=== PATIENT | female | born 1945 | race Caucasian/White ===

== ENCOUNTER 2018-09-07 00:15 | Inpatient (IN) | payer OTHER, BC, MEDICARE ==
[2018-09-06 17:10] LABS: INR 0.98
--- NOTE | 2018-09-06 18:46 | RADIOLOGY IMAGING REPORT ---
[facility] PATIENT NAME: Candida Ralph : 1945 MR: [id number] V: [id number] EXAM DATE: ORDERING PHYSICIAN: RICHARD WHITEHEAD TECHNOLOGIST: Location: [facility] Patient: Candida Ralph : 1945 Visit/Account:[id number] Date of Sevice: 09/05/2018 Examination: Bilateral leg length HISTORY: Preoperative planning for arthroplasty. FINDINGS: Frontal views of the lower extremities are obtained. There is medial and lateral compartmen t osteoarthritis of both knees. There is bilateral genu valgus. Right leg length: The right lower extremity measures 79.7 cm with a femur length of 44.8 cm and a tibial length of 34.5 cm. Left leg length: The left lower extremity measures 79.6 cm with a femur length of 44.5 cm and a tibial length of 34.6 cm. IMPRESSION: 1. Leg lengths as above. Report Dictated By: Matteo Huddleston at 09/06/2018 6:36 PM Report E-Signed By: Matteo Huddleston at 09/06/2018 6:42 PM WSN:[id number]
[~2018-09-07] VITALS: Ht 157.5 cm; Wt 88.0 kg
[2018-09-07] VITALS (14 sets, daily range): BP systolic 103–153; BP diastolic 46–99
[~2018-09-07 00:15] MED LIST: BUPR-127 PO; BUPR300T56 PO; CEPH-13 PO; CETI-176 PO; DULO30CA35 PO; DULO60CA56 PO; LEVO75TA73 PO; LOR5/325 PO; LOSA-57 PO; PANT40TA63 PO; SIMV-54 PO; TIZA4CAP3 PO
[2018-09-07] MEDS ORDERED: fentaNYL CITR 100 MCG/2 ML AMP ONE (10:16)
[2018-09-07] MEDS ORDERED: DEXAMETHASONE SOD 4 MG/ML VIAL ONE (10:16)
[2018-09-07] MEDS ORDERED: LIDOCAINE MPF 1% 5 ML VIAL ONE (10:16)
[2018-09-07] MEDS ORDERED: ONDANSETRON 4 MG/2 ML VIAL ONE (10:16)
[2018-09-07] MEDS ORDERED: PROPOFOL EMUL(*) 10MG/ML 20 ML 20 ML ONE (10:16)
[2018-09-07] MEDS ORDERED: KETAMINE HCL 200 MG/20 ML MDV ONE (10:19)
[2018-09-07] MEDS ORDERED: MIDAZOLAM 2 MG/2 ML VIAL IVP PRN (11:05)
[2018-09-07] MEDS ORDERED: LIDOCAINE/SOD BICARB 8.4% SYR ID ONE (11:05)
[2018-09-07] MEDS ORDERED: FAMOTIDINE 20 MG TAB PO ONE (11:05)
[2018-09-07] MEDS ORDERED: NORMOSOL R SOLN(*) 1000 ML BAG 1,000 ML IV PRN (11:05)
[2018-09-07] MEDS ORDERED: cloNIDine EPIDUR INJ 100MCG/ML 40 MCG, ROPIVACAINE 0.5% 20 ML VIAL 25 ML, EPINEPHrine H... INJ ONE (11:05)
[2018-09-07] MEDS ORDERED: PREGABALIN 75 MG CAPSULE PO ONE (11:05)
[2018-09-07] MEDS ORDERED: ACETAMINOPHEN 500 MG TAB PO ONE (11:05)
[2018-09-07] MEDS ORDERED: CLINDAMYCIN 900 MG/D5W 50 ML 50 ML IVPB ONE (11:05)
[2018-09-07] MEDS ORDERED: TRANEXAMIC AC 1000 MG/10ML SDV 1,000 MG in DEXTROSE 5% 50 ML BAG 50 ML IV ONE (11:05)
[2018-09-07] MEDS ORDERED: VASOPRESSIN 20 UNIT/ML VIAL ONE (12:43)
[2018-09-07] MEDS ORDERED: LIDOCAINE 2% JELLY 5 ML TUBE ONE (13:08)
[2018-09-07] MEDS ORDERED: MORPHINE SULFATE 30 MG PCA IV PRN (14:50)
[2018-09-07] MEDS ORDERED: PROMETHAZINE 25 MG/ML 1 ML AMP IVP PRN (14:50)
[2018-09-07] MEDS ORDERED: MAGNESIUM CITRATE 300 ML BTL PO PRN (14:50)
[2018-09-07] MEDS ORDERED: NALOXONE HCL 0.4 MG/ML VIAL IVP PRN (14:50)
[2018-09-07] MEDS ORDERED: FLUSH 10 ML SYR IVP PRN (14:50)
[2018-09-07] MEDS ORDERED: ACETAMINOPHEN 500 MG TAB PO PRN (14:50)
[2018-09-07] MEDS ORDERED: KCL/D5LR 20 MEQ/1000 ML PREMIX 1,000 ML IV PRN (14:50)
[2018-09-07] MEDS ORDERED: ONDANSETRON 4 MG/2 ML VIAL IVP PRN (14:50)
--- NOTE | 2018-09-07 15:33 | OPERATIVE REPORT 1 ---
EVENT DATE: September 07, 2018 SURGEON: Thomas Euceda MD ANESTHESIOLOGIST: Ryder Zhao MD ANESTHESIA: General plus spinal. PRODUCTION STATISTICAL CLERK: Jono Glover PA-C PREOPERATIVE DIAGNOSIS Left knee degenerative joint disease (valgus knee). 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 PROCEDURE PERFORMED Left total knee arthroplasty (12815). ESTIMATED BLOOD LOSS Minimal. INTRAVENOUS FLUID Crystalloid 1900, no colloid. TOURNIQUET TIME 64 SPECIMENS No specimens. COMPLICATIONS No complications. IMPLANTS USED Language System[employer] Attune 6 narrow left femur, posterior stabilized, fixed-bearing 5 tibia, anatomic 35 patella, 6 mm #6 posterior stabilized insert, all cemented. SUMMARY OF PROCEDURE The patient was brought into the operating room and placed on the OR table in the supine position. She was then placed in a seated position for a spinal, after which she was placed back in the supine position for a light general anesthetic. Her left lower extremity was prepped and draped in the usual sterile fashion. We had templated her cuts. She actually measured about 4.5, but we chose to cut her at a 5. For the procedure after adequate prep and drape, her limb was exsanguinated, and then the tourniquet was inflated to 275 mmHg. A utilitarian anterior incision was made, deepened through skin and subcutaneous tissue, followed by a medial parapatellar approach. She had abundant osteophyte formation throughout much of the joint. There was virtually no notch remaining. We used rongeurs to reopen the notch so we could better assess where to place the fidel which, based on templating, would be placed slightly medial of midline. We also looked to remove the ACL, but there was little ACL remaining. The patellofemoral ligament was divided. We cleared the tissue off the anterior aspect of the distal femur. The menisci were excised. We did release a little bit of the medial material on the metaphysis, but we did very minimal dissection because it was a valgus knee. Ultimately, we were able to get the fidel into the proper position and then made our distal cut. The first time really did not hit enough of the distal condyle, so we dropped by 2 mm and cut again. This seemed to be more appropriate. We sized her for a 6. It looked like it would probably be a narrow. We made our distal cuts and then did the box cut. We trialed and then drilled the lug holes. It looked like the femur fit fine. We then moved to the tibia. Posterior retraction and lateral retraction were obtained with a single and two-prong retractor respectively. Additional meniscus was removed. We then made our tibial cut at approximately 2 mm below the deficient lateral plateau. After this cut, we sized for a 5 and then did our initial posterior condylar osteophyte resections and capsular stripping. We then trialed back with a 6 femur. It was a little bit tight in extension at first, but when I pushed on it, we got the capsular scar tissue to stretch out, and we got her to full extension fairly easily. We checked her tension with a 5 mm insert. She was a little bit tighter laterally than medially. We went back in and removed a little bit more osteophyte posteriorly, and a bit more capsular stripping balanced her a bit more, but ultimately I did decide to release the popliteus given that she had a valgus knee that seemed like the appropriate step, and this did balance things substantially better. We then removed the trial inserts. We drilled a little bit of bone at the eburnated section of the plateau laterally, placed bone blocks both distally and proximally to minimize cement excursion and allow for better cement mantle for the tibial insert. We then placed the final implants starting with the tibia, then the insert at 5 mm, followed by the femur, and then the patella. The patella had previously been prepared by measuring first. It measured 23, so we used a demar when we cut it, but then did a free-hand cut to drop 2 mm more, and that left us with a 13 mm bone. With all implants in place, we had removed excess cement and then waited for full polymerization, at which point the tourniquet was deflated, and the second dose of tranexamic acid was given. There was very minimal bleeding with the tourniquet down. We moved up to size 6 trial, and that seemed to fit quite nicely, so we removed the trial and placed the final insert after injecting the posterior capsule with a local anesthetic. We placed additional local anesthetic around the skin because she had already received a block, and therefore, we did not do it in the periosteum. The wound was irrigated again, and then we closed using #1 Vicryl suture, followed by 3-0 Vicryl suture, 4-0 Monocryl, and then a skin adhesive with mesh. She was then given a dry, sterile dressing, awakened, and transferred to the recovery area in stable condition. MARIA TERESA
--- NOTE | 2018-09-07 15:57 | RADIOLOGY IMAGING REPORT ---
FACILITY: [facility] [place] PATIENT NAME: Candida Ralph : 1945 MR: [id number] V: [id number] EXAM DATE: ORDERING PHYSICIAN: RICHARD WHITEHEAD TECHNOLOGIST: Location: [facility] [place] Patient: Candida Ralph : 1945 Visit/Account:[id number] Date of Sevice: 09/07/2018 Left knee, two views. HISTORY: Left total knee arthroplasty. COMPARISON: 09/06/2018. The articular surfaces of the distal femur, proximal tibia, and patella have been resected and replac ed with prosthetic components. The components have been secured with cement. Alignment is unremarkabl e. Air collections are present in the anterior soft tissues. IMPRESSION: Unremarkable knee replacement. Report Dictated By: René Shelby MD at 09/07/2018 3:51 PM Report E-Signed By: René Shelby MD at 09/07/2018 3:52 PM WSN:[email or web address]
[2018-09-07] MEDS ORDERED: PANTOPRAZOLE SOD 40 MG TABEC PO PRN (16:25)
--- NOTE | 2018-09-07 16:31 | Hospitalist Consultation ---
History of Present Illness Requesting Physician Dr. Euceda Reason for Consult Medical Management Chief Complaint s/p left knee replacement History of Present Illness She was admitted s/p left knee replacement. It is reported the surgery went well and without complication. History Problems: (1) Hypertension Status: Chronic (2) Hyperlipidemia Status: Chronic (3) Hypothyroidism Status: Chronic (4) GERD (gastroesophageal reflux disease) Status: Chronic (5) Depression Status: Chronic Home Meds Reported Medications Tizanidine Hcl (TIZANIDINE HCL) 4 Mg Capsule, 0.5 TAB PO QHS, CAPSULE 09/05/18 Bupropion Hcl (BUPROPION XL) 300 Mg Tab.er.24h, 300 MG PO QDAY, TAB 09/05/18 Duloxetine Hcl (CYMBALTA) 60 Mg Capsule.dr, 60 MG PO QDAY, #5 CAP 09/05/18 Simvastatin (SIMVASTATIN) 40 Mg Tablet, 40 MG PO HS, TAB 09/01/18 Losartan/Hydrochlorothiazide (LOSARTAN-HCTZ 100-12.5 MG TAB) 1 Each Tablet, 1 EACH PO QDAY 09/01/18 Cetirizine Hcl (ZYRTEC) 10 Mg Tablet, 10 MG PO QDAY, TAB 08/13/15 Pantoprazole Sodium (PROTONIX) 40 Mg Tablet.dr, 40 MG PO QDAY PRN for HEARTBURN, TAB.SR 08/13/15 Levothyroxine Sodium (LEVOTHYROXINE SODIUM) 75 Mcg Tablet, 75 MCG PO QDAY 08/13/15 Discontinued Reported Medications Duloxetine Hcl (CYMBALTA) 30 Mg Capsule.dr, 60 MG PO QDAY, #5 CAP 08/13/15 Bupropion Hcl (WELLBUTRIN) 75 Mg Tablet, 150 MG PO QDAY, TAB 08/13/15 Cephalexin (KEFLEX) 500 Mg Capsule, 500 MG PO Q6H, #28 CAP 08/13/15 Hydrocodone Bit/Acetaminophen (HYDROCODON-ACETAMINOPHEN 5-325) 1 Each Tablet, 2 EACH PO Q6H 08/13/15 Allergies: Coded Allergies: Penicillins (Unverified Allergy, Unknown, 08/13/15) Sulfa (Sulfonamide Antibiotics) (Unverified Allergy, Unknown, 08/13/15) tetanus and diphtheria toxoids (Unverified Allergy, Unknown, 08/13/15) Patient History: FH: breast cancer MOTHER BROTHER OR SISTER Hypertension FATHER MOTHER Hx Smoking: No Smoking Status: Never Smoker Exposure to Second Hand Smoke?: No Caffeine Intake: Soda Caffeine/Cups Per Day: 2-12 oz cans/day Hx Alcohol Use: No Hx Substance Use Disorder: No Review of Systems All Systems Reviewed/Normal: Yes, Except as Noted Exam Vital Signs Vital Signs Date Time Temp Pulse Resp B/P (MAP) Pulse Ox O2 Delivery O2 Flow Rate FiO2 09/07/18 16:05 84 20 95 09/07/18 10:40 98.6 153/84 (107) Room Air General Appearance: Alert, Awake, No Acute Distress, Afebrile Neuro: No Gross deficits Cardiovascular: Regular Rate and Rhythm Respiratory: No Respiratory Distress, Clear to Auscultation GI: Abd Soft and Non-Tender Psych: Alert & Oriented X3, Appropriate Mood & Affect Medical Decision Making Data Points Result Diagram: 09/07/18 3184 Assessment and Plan Problems: (1) Status post left knee replacement Status: Acute Assessment & Plan: Followed by Dr. Euceda. She will be placed on Aspirin for DVT prophylaxis. She has no history of DVT or PE. (2) Hypertension Status: Chronic Assessment & Plan: She is on chronic treatment with Losartan and Hydrochlorothiazide. Losartan has been restarted with hold parameters. (3) Hyperlipidemia Status: Chronic Assessment & Plan: She is on chronic treatment with Simvastatin. (4) Hypothyroidism Status: Chronic Assessment & Plan: She is on chronic treatment with Levothyroxine. (5) GERD (gastroesophageal reflux disease) Status: Chronic Assessment & Plan: She is on chronic treatment with Protonix. (6) Depression Status: Chronic Assessment & Plan: She is on chronic treatment with Bupropion. Venous Thromboembolism Antithrombotics Is Pt On Any Antithrombotics?: No ANAYELI GUILLEN Sep 07, 2018 16:31
[2018-09-07] MEDS: CLINDAMYCIN(*) 600 MG/NS 50 ML 50 ML IVPB SCH (19:38)
[2018-09-07] MEDS: SIMVASTATIN 40 MG TAB PO SCH (20:31)
[2018-09-08 00:41] VITALS: BP 154/93
[2018-09-08 03:32] VITALS: BP 101/81
[2018-09-08] MEDS: CLINDAMYCIN(*) 600 MG/NS 50 ML 50 ML IVPB SCH ×2 (03:42→12:31)
[2018-09-08 06:01] LABS: PLATELET COUNT, AUTOMATED 182 K/uL (150-450)
[2018-09-08] MEDS: LEVOTHYROXINE SOD 0.075 MG TAB PO SCH (06:30)
[2018-09-08 07:15] VITALS: BP 122/59
[2018-09-08] MEDS: CETIRIZINE HCL 10 MG TAB PO SCH (08:23)
[2018-09-08] MEDS: DULoxetine HCL 30 MG CAPCR PO SCH (08:23)
[2018-09-08] MEDS: buPROPion XL 150 MG TABCR PO SCH (08:23)
[2018-09-08] MEDS: ASPIRIN 325 MG TAB PO SCH (08:23)
[2018-09-08] MEDS: LOSARTAN POTASSIUM 50 MG TAB PO SCH (08:24)
--- NOTE | 2018-09-08 10:03 | Hospitalist Progress Note ---
Subjective Progress Notes Subjective She has no complaints this morning. She had no acute events overnight. Patient Complains of: Cardiovascular: No: Chest Pain Respiratory: No: Shortness of Breath Physical Exam Vital Signs Date Time Temp Pulse Resp B/P (MAP) Pulse Ox O2 Delivery O2 Flow Rate FiO2 09/08/18 08:36 87 09/08/18 08:36 Nasal Cannula 2.0 09/08/18 07:15 97.9 67 16 122/59 (80) Intake and Output 09/08/18 06:59 Intake Total 2915 ml Output Total 420 ml Balance 2495 ml Intake Oral 640 ml IV Total 2275 ml Output Urine Total 400 ml Estimated Blood Loss 20 ml # Voids 1 General Appearance: Alert, Awake, No Acute Distress, Afebrile Neuro: No Gross deficits Cardiovascular: Regular Rate and Rhythm Respiratory: No Respiratory Distress, Clear to Auscultation GI: Soft and Non-Tender Psych: Alert & Oriented X3, Appropriate Mood & Affect Result Diagram: 09/08/18 0539 09/08/18 05 Assessment and Plan Problems: (1) Status post left knee replacement Status: Acute Assessment & Plan: Followed by Dr. Euceda. She will be placed on Aspirin for DVT prophylaxis. She has no history of DVT or PE. (2) Hypertension Status: Chronic Assessment & Plan: She is on chronic treatment with Losartan and Hy drochlorothiazide. Losartan has been restarted with hold parameters. (3) Hyperlipidemia Status: Chronic Assessment & Plan: She is on chronic treatment with Simvastatin. (4) Hypothyroidism Status: Chronic Assessment & Plan: She is on chronic treatment with Levothyroxine. (5) GERD (gastroesophageal reflux disease) Status: Chronic Assessment & Plan: She is on chronic treatment with Protonix. (6) Depression Status: Chronic Assessment & Plan: She is on chronic treatment with Bupropion. Exam Sepsis Risk: No Definite Risk ANAYELI GUILLEN [employer] Sep 08, 2018 10:03
[2018-09-08 11:51] VITALS: Ht 157.5 cm; Wt 88.0 kg
[2018-09-08 11:55] VITALS: BP 126/62
[2018-09-08 14:54] VITALS: BP 136/64
[2018-09-08 19:41] VITALS: BP 152/75
[2018-09-08] MEDS: SIMVASTATIN 40 MG TAB PO SCH (20:37)
[2018-09-08] MEDS: diphenhydrAMINE 25 MG CAP PO PRN (20:37)
[2018-09-09] VITALS (7 sets, daily range): BP systolic 111–156; BP diastolic 0–92
[2018-09-09] MEDS: LEVOTHYROXINE SOD 0.075 MG TAB PO SCH (05:32)
[2018-09-09 06:17] LABS: PLATELET COUNT, AUTOMATED 179 K/uL (150-450)
[2018-09-09] MEDS: buPROPion XL 150 MG TABCR PO SCH (08:52)
[2018-09-09] MEDS: guaiFENesin 600 MG TABCR PO SCH ×2 (08:52→21:32)
[2018-09-09] MEDS: ASPIRIN 325 MG TAB PO SCH (08:52)
[2018-09-09] MEDS: CETIRIZINE HCL 10 MG TAB PO SCH (08:52)
[2018-09-09] MEDS: LOSARTAN POTASSIUM 50 MG TAB PO SCH (08:52)
[2018-09-09] MEDS: DULoxetine HCL 30 MG CAPCR PO SCH (08:52)
--- NOTE | 2018-09-09 11:31 | RADIOLOGY IMAGING REPORT ---
FACILITY: [facility] [place] PATIENT NAME: Candida Ralph : 1945 MR: [id number] V: [id number] EXAM DATE: ORDERING PHYSICIAN: ANAYELI GUILLEN TECHNOLOGIST: Location: [facility] [place] Patient: Candida Ralph : 1945 Visit/Account:[id number] Date of Sevice: 09/09/2018 CHEST SINGLE AP Additional pertinent History: Recent surgery. COMPARISON STUDIES: none FINDINGS: Support lines and catheters: None Lungs and Pleura: No obvious infiltrate or consolidation. Mild bibasilar bronchial thickening boggs es. Heart and vasculature: Hearts mildly enlarged. Central vasculature is appears to be mildly engorged with mild cephalization. No overt failure. Tanna and Mediastinum: Negative. Bones and Chest wall: Negative. Upper Abdomen: Negative. IMPRESSION: 1. No obvious acute cardiopulmonary disease. Perceived bronchial thickening changes in lung bases. Changes possibly representing chronic bronchitic airway disease. 2. With no previous films it would be difficult to exclude a mild central vascular engorgement and i nterstitial pulmonary edema pattern. Recommend clinical correlation and appropriate follow-up. Report Dictated By: Jasmeet Garcia MD at 09/09/2018 11:20 AM Report E-Signed By: Jasmeet Garcia MD at 09/09/2018 11:26 AM WSN:[email or web address]
--- NOTE | 2018-09-09 12:58 | Hospitalist Progress Note ---
Subjective Progress Notes Subjective She has complaints of stuffy nose, cough, congestion, and shortness of breath. She believes she is getting a "cold". She states that she "needs to do a sinus rinse" and would feel better. She denies chest pain, fever/ chills. Patient Complains of: Cardiovascular: No: Chest Pain Respiratory: Cough, Congestion, Shortness of Breath Physical Exam Vital Signs Date Time Temp Pulse Resp B/P (MAP) Pulse Ox O2 Delivery O2 Flow Rate FiO2 09/09/18 10:51 98.7 85 18 111/59 (76) 90 Oxy Mask 4.0 Intake and Output 09/09/18 06:59 Intake Total 357 ml Output Total 350 ml Balance 7 ml Intake Oral 300 ml IV Total 57 ml Output Urine Total 350 ml # Voids 3 General Appearance: Alert, Awake, No Acute Distress, Afebrile Neuro: No Gross deficits ENT: Other (nasal congestion present) Cardiovascular: Regular Rate and Rhythm Respiratory: No Respiratory Distress, Other (expiratory wheezes, crackles to right lower base) GI: Soft and Non-Tender Psych: Alert & Oriented X3, Appropriate Mood & Affect Result Diagram: 09/09/18 0541 09/08/18 0539 Assessment and Plan Problems: (1) Status post left knee replacement Status: Acute Assessment & Plan: Followed by Dr. Euceda. She will be placed on Aspirin for DVT prophylaxis. She has no history of DVT or PE. (2) Bronchitis Status: Acute Assessment & Plan: She had cough, congestion 09/09. Chest x-ray performed suggests bronchitis. She was given Mucinex and nebulizers. She was encouraged to use her IS more. (3) Hypertension Status: Chronic Assessment & Plan: She is on chronic treatment with Losartan and Hydrochlorothiazide. Losartan has been restarted with hold parameters. (4) Hyperlipidemia Status: Chronic Assessment & Plan: She is on chronic treatment with Simvastatin. (5) Hypothyroidism Status: Chronic Assessment & Plan: She is on chronic treatment with Levothyroxine. (6) GERD (gastroesophageal reflux disease) Status: Chronic Assessment & Plan: She is on chronic treatment with Protonix. (7) Depression Status: Chronic Assessment & Plan: She is on chronic treatment with Bupropion. Exam Sepsis Risk: No Definite Risk ANAYELI GUILLEN [employer] Sep 09, 2018 12:58
[2018-09-09] MEDS: ALBUTEROL/IPRATROPIUM 3 ML NEB NEB SCH ×2 (13:04→17:07)
[2018-09-09] MEDS: SIMVASTATIN 40 MG TAB PO SCH (21:31)
[2018-09-09] MEDS: diphenhydrAMINE 25 MG CAP PO PRN (21:38)
[2018-09-10 00:54] VITALS: BP 136/73
[2018-09-10] MEDS: ALBUTEROL/IPRATROPIUM 3 ML NEB NEB SCH ×3 (01:00→12:14)
[2018-09-10 03:59] VITALS: BP 135/71
[2018-09-10] MEDS: LEVOTHYROXINE SOD 0.075 MG TAB PO SCH (05:34)
[2018-09-10 06:19] LABS: PLATELET COUNT, AUTOMATED 173 K/uL (150-450)
[2018-09-10 06:46] VITALS: BP 138/58
--- NOTE | 2018-09-10 08:51 | Hospitalist Progress Note ---
Subjective Progress Notes Subjective She reports some cough with occasional scant sputum. No dyspnea at rest. No fevers. She did have significant second-hand tobacco exposure. Physical Exam Vital Signs Date Time Temp Pulse Resp B/P (MAP) Pulse Ox O2 Delivery O2 Flow Rate FiO2 09/10/18 07:06 82 09/10/18 06:46 98.1 89 18 138/58 (84) Oxy Mask 3.0 Intake and Output 09/10/18 06:59 Intake Total 1020 ml Balance 1020 ml Intake Oral 1020 ml # Voids 4 General Appearance: Alert, Awake Cardiovascular: Regular Rate and Rhythm Respiratory: Other (diminished breath sounds at bases/no rales or wheezes) Result Diagram: 09/10/18 0515 09/08/18 0539 Assessment and Plan Problems: (1) Status post left knee replacement Status: Acute Assessment & Plan: Followed by Dr. Euceda. She will be on Aspirin for DVT pro phylaxis. She has no history of DVT or PE. (2) Bronchitis Status: Acute Assessment & Plan: She probably has some chronic bronchitis based on her history. Pre-op oxygen saturations were borderline. Chest x-ray performed suggests bronchitis. She was given Mucinex and nebulizers. She was encouraged to use her IS. She will need at least temporary home oxygen and close follow up with her primary care. (3) Hypertension Status: Chronic Assessment & Plan: She is on chronic treatment with Losartan and Hydrochlorothiazide. (4) Hyperlipidemia Status: Chronic Assessment & Plan: She is on chronic treatment with Simvastatin. (5) Hypothyroidism Status: Chronic Assessment & Plan: She is on chronic treatment with Levothyroxine. (6) GERD (gastroesophageal reflux disease) Status: Chronic Assessment & Plan: She is on chronic treatment with Protonix. (7) Depression Status: Chronic Assessment & Plan: She is on chronic treatment with Bupropion. Exam Sepsis Risk: No Definite Risk NINI CABRERA MD Sep 10, 2018 08:51
[2018-09-10] MEDS ORDERED: ASPI-757 PO (08:54)
[2018-09-10] MEDS: LOSARTAN POTASSIUM 50 MG TAB PO SCH (09:00)
[2018-09-10] MEDS: CETIRIZINE HCL 10 MG TAB PO SCH (09:19)
[2018-09-10] MEDS: guaiFENesin 600 MG TABCR PO SCH (09:19)
[2018-09-10] MEDS: buPROPion XL 150 MG TABCR PO SCH (09:19)
[2018-09-10] MEDS: ASPIRIN 325 MG TAB PO SCH (09:20)
[2018-09-10] MEDS: DULoxetine HCL 30 MG CAPCR PO SCH (09:20)
[2018-09-10 10:51] VITALS: BP 125/57
[2018-09-10] MEDS ORDERED: oxycodone PO (12:19)
== END 2018-09-10 12:50 | disposition home or self-care (01) | DRG 554 ==
LOC: OR 00:15 → MED 16:03
PROVIDERS: ADMIT Orthopaedic Surgery Hand Surgery; ATTEND Orthopaedic Surgery Hand Surgery
DX: M17.12 Unilateral primary osteoarthritis, left knee (principal); M21.062 Valgus deformity, not elsewhere classified, left knee; M25.761 Osteophyte, right knee; I10 Essential (primary) hypertension; K21.9 Gastro-esophageal reflux disease without esophagitis; E78.5 Hyperlipidemia, unspecified; E03.9 Hypothyroidism, unspecified; F32.9 Major depressive disorder, single episode, unspecified; J42 Unspecified chronic bronchitis; Z77.22 Contact with and (suspected) exposure to environmental tobacco smoke (acute) (chronic); Z88.0 Allergy status to penicillin; Z88.2 Allergy status to sulfonamides; Z88.7 Allergy status to serum and vaccine; Z90.49 Acquired absence of other specified parts of digestive tract
CPT/HCPCS: 36415; 71045; 77073; 82310; 82374; 82435; 82565; 82947; 84132; 84295; 84520; 85014; 85018; 85025; 85610; 86850; 86900; 86901; 94640; 97161; C1713; C1776; J1100; J2001; J2250; J2405; J2704; J3010; J3490; J7060; Q0163